=== PATIENT | male | born 2000 | race Hispanic/Latino ===

== ENCOUNTER 2022-04-17 13:04 | Inpatient (IN) | payer OTHER ==
[~2022-04-17] VITALS: Ht 170.2 cm; Wt 58.6 kg
[2022-04-17 15:11] LABS: HEMATOCRIT 41.7 % (42.0-52.0); HEMOGLOBIN 14.4 g/dl (13.5-17.5); MEAN CORPUSCULAR HEMOGLOBIN 30.4 pg (27.0-33.0); MEAN CORPUSCULAR HGB CONC 34.5 g/dl (32.0-36.5); MEAN CORPUSCULAR VOLUME 88.2 fl (80.0-96.0); PLATELET COUNT, AUTOMATED 295 10^3/uL (150-450); RED BLOOD COUNT 4.73 10^6/uL (4.30-6.10); WHITE BLOOD COUNT 6.2 10^3/uL (4.0-10.0)
[2022-04-17 15:40] LABS: ETHYL ALCOHOL (ETHANOL) 0.003 % (0.000-0.010)
[2022-04-17 15:42] LABS: ACETAMINOPHEN LEVEL < 2.0 UG/ML (10.0-20.0); ALBUMIN 3.3 G/DL (3.2-5.2); ALKALINE PHOSPHATASE 111 U/L (46-116); ALT/SGPT 14 U/L (7.0-40); AST/SGOT 19 U/L (<34); BILIRUBIN,DIRECT 0.2 MG/DL (<0.4); BILIRUBIN,TOTAL 0.5 MG/DL (0.3-1.2); BLOOD UREA NITROGEN 13 MG/DL (9-23); CALCIUM LEVEL 9.1 MG/DL (8.5-10.1); CARBON DIOXIDE LEVEL 27 MMOL/L (20-31); CHLORIDE LEVEL 107 MMOL/L (98-107); CREATININE FOR GFR 0.94 MG/DL (0.70-1.30); GLUCOSE, FASTING 94 MG/DL (60-100); POTASSIUM SERUM 4.2 MMOL/L (3.5-5.1); SALICYLATE LEVEL < 3.0 MG/DL (<30); SODIUM LEVEL 141 MMOL/L (136-145); TOTAL PROTEIN 6.2 G/DL (5.7-8.2)
[2022-04-17 15:45] LABS: THYROID STIMULATING HORMONE 0.871 uIU/ML (0.48-4.17)
[2022-04-17 18:12] LABS: AMPHETAMINES LEVEL URINE NEGATIVE (NEGATIVE); BARBITURATES URINE NEGATIVE (NEGATIVE); BENZODIAZEPINES URINE NEGATIVE (NEGATIVE); CANNABINOIDS URINE NEGATIVE (NEGATIVE); COCAINE METABOLITE URINE NEGATIVE (NEGATIVE); METHADONE URINE NEGATIVE (NEGATIVE); OPIATES URINE NEGATIVE (NEGATIVE); PHENCYCLIDINE URINE NEGATIVE (NEGATIVE)
[2022-04-17] MEDS ORDERED: HOME MED LIST COMPLETE! XX SCH (22:00)
[2022-04-17] MEDS ORDERED: MOM 30ML SUSPENSION UDC PO PRN (22:15)
[2022-04-17] MEDS ORDERED: MAALOX 30 ML SUSP *UDC PO PRN (22:15)
[2022-04-17] MEDS ORDERED: ACETAMINOPHEN TAB 650MG DOSE (2X325MG) PO PRN (22:15)
[2022-04-18 00:26] VITALS: BP 117/66
[2022-04-18 06:36] VITALS: BP 115/64
[2022-04-18] MEDS: SERTRALINE HCL 50 MG TAB PO SCH (15:52)
[2022-04-18] MEDS: POLYVINYL ALCOHOL OPHTH SOLN 15ML (LIQUITEARS) OD SCH ×2 (15:52→20:58)
[2022-04-18 19:33] VITALS: BP 112/60
[2022-04-18] MEDS: traZODone 50 MG TAB PO PRN (20:57)
[2022-04-19 06:18] VITALS: BP 106/72
[2022-04-19] MEDS: POLYVINYL ALCOHOL OPHTH SOLN 15ML (LIQUITEARS) OD SCH ×3 (09:00→20:47)
[2022-04-19] MEDS: SERTRALINE HCL 50 MG TAB PO SCH (09:32)
[2022-04-19 16:41] VITALS: BP 110/56
[2022-04-19] MEDS: traZODone 50 MG TAB PO PRN (20:46)
[2022-04-20 06:19] VITALS: BP 97/58
[2022-04-20] MEDS: SERTRALINE HCL 50 MG TAB PO SCH (08:38)
[2022-04-20] MEDS: POLYVINYL ALCOHOL OPHTH SOLN 15ML (LIQUITEARS) OD SCH (08:38)
[2022-04-20] MEDS: OLANZapine ORAL DISINTEGRATING TAB 5MG PO PRN (13:04)
[2022-04-20 14:30] VITALS: BP 117/58
[2022-04-21 06:14] VITALS: BP 96/50
[2022-04-21] MEDS: ARIPiprazole 2 MG TAB PO SCH (07:50)
[2022-04-21] MEDS: SERTRALINE HCL 50 MG TAB PO SCH (07:50)
[2022-04-21 16:43] VITALS: BP 138/72
[2022-04-21] MEDS: traZODone 50 MG TAB PO PRN (20:25)
[2022-04-21] MEDS: OLANZapine ORAL DISINTEGRATING TAB 5MG PO PRN (22:17)
[2022-04-22 06:06] VITALS: BP 95/53
[2022-04-22] MEDS: SERTRALINE HCL 50 MG TAB PO SCH (08:13)
[2022-04-22] MEDS: ARIPiprazole 2 MG TAB PO SCH (08:13)
[2022-04-22] MEDS ORDERED: ABIL1TAB13 PO (11:46)
[2022-04-22] MEDS ORDERED: OLAN5ZYD PO (11:46)
[2022-04-22] MEDS ORDERED: SERT50TA29 PO (11:46)
[2022-04-22] MEDS ORDERED: TRAZ-252 PO (11:46)
[2022-04-23] MEDS ORDERED: SERTRALINE HCL 50 MG TAB PO SCH (21:00)
== END 2022-04-22 14:08 | disposition home or self-care (01) | DRG 885 ==
LOC: M ED 13:04 → M ED INP 22:12 → M PSY 22:57
PROVIDERS: ADMIT Student in an Organized Health Care Education/Training Program; ATTEND Student in an Organized Health Care Education/Training Program
DX: F33.3 Major depressive disorder, recurrent, severe with psychotic symptoms (principal); R45.851 Suicidal ideations; F43.9 Reaction to severe stress, unspecified; R45.850 Homicidal ideations; H57.11 Ocular pain, right eye; F17.210 Nicotine dependence, cigarettes, uncomplicated; F60.3 Borderline personality disorder; F60.2 Antisocial personality disorder; Z91.82 Personal history of military deployment; Z91.51 Personal history of suicidal behavior; Z76.5 Malingerer [conscious simulation]